=== PATIENT | female | born 1995 | race Caucasian/White ===

== ENCOUNTER 2017-05-01 20:31 | Emergency (ER) | payer SELFPAY ==
[2017-05-01 20:48] VITALS: BP 108/64
[2017-05-01 21:04] LABS: Basophils % (Auto) 0.5 % (0.0-1.8); Eosinophils % (Auto) 1.6 % (0.0-4.3); Hemoglobin 11.4 gm/dl (10.1-14.3); Mean Corpuscular HGB Conc 33 % (30-34); Mean Corpuscular Hemoglobin 28 pg (28-32); Mean Corpuscular Volume 85 fl (79-97); Platelet Count 231 K/mm3 (140-440); Red Blood Count 4.12 M/mm3 (3.65-5.03)
[2017-05-01 21:16] LABS: INR 0.93 (0.87-1.13)
[2017-05-01 21:17] LABS: Partial Thromboplastin Time 29.1 Sec. (24.2-36.6)
[2017-05-01 21:18] LABS: Anion Gap 15 mmol/L; Blood Urea Nitrogen 14 mg/dL (7-17); Calcium 8.7 mg/dL (8.4-10.2); Carbon Dioxide 23 mmol/L (22-30); Chloride 101.7 mmol/L (98-107); Glucose 81 mg/dL (65-100); Potassium 4.1 mmol/L (3.6-5.0); Sodium 136 mmol/L (137-145)
--- NOTE | 2017-05-02 07:40 | XRay Report ---
Chest 2 views: History: Chest pain. Findings: Normal cardiomediastinal silhouette. Trachea is midline. No consolidation, pneumothorax or pleural effusion. Impression: No acute cardiopulmonary findings.
--- NOTE | 2017-05-02 10:46 | ED Elopement Review ---
ED Pt Elopement review - Results review Lab results: Laboratory Tests 05/01/17 05/01/17 05/01/17 20:52 20:52 20:52 WBC 8.0 RBC 4.12 Hgb 11.4 Hct 35.0 MCV 85 MCH 28 MCHC 33 RDW 16.0 H Plt Count 231 Lymph % (Auto) 34.3 [place] % (Auto) 6.3 Eos % (Auto) 1.6 Baso % (Auto) 0.5 Lymph # 2.7 [place] # 0.5 Eos # 0.1 Baso # 0.0 Seg Neutrophils % 57.3 Seg Neutrophils # 4.6 PT 12.9 INR 0.93 APTT 29.1 Sodium 136 L Potassium 4.1 Chloride 101.7 Carbon Dioxide 23 Anion Gap 15 BUN 14 Creatinine 1.0 Estimated GFR > 60 BUN/Creatinine Ratio 14.00 Glucose 81 Calcium 8.7 Troponin T < 0.010 HCG, Qual 05/01/17 05/01/17 20:52 23:47 WBC RBC Hgb Hct MCV MCH MCHC RDW Plt Count Lymph % (Auto) [place] % (Auto) Eos % (Auto) Baso % (Auto) Lymph # [place] # Eos # Baso # Seg Neutrophils % Seg Neutrophils # PT INR APTT Sodium Potassium Chloride Carbon Dioxide Anion Gap BUN Creatinine Estimated GFR BUN/Creatinine Ratio Glucose Calcium Troponin T < 0.010 HCG, Qual Negative - Call Back decision Pt Call Back Decision: No action required
== END 2017-05-02 01:43 | disposition left against medical advice (07) ==
LOC: ED 20:31
DX: R07.89 Other chest pain (principal); R06.02 Shortness of breath; R51 Headache; F41.9 Anxiety disorder, unspecified; F17.200 Nicotine dependence, unspecified, uncomplicated; Z53.21 Procedure and treatment not carried out due to patient leaving prior to being seen by health care provider
CPT/HCPCS: 36415; 71020; 80048; 84484; 84703; 85025; 85610; 85730; 93005; 93010